=== PATIENT | male | born 1940 | race Caucasian/White ===

== ENCOUNTER → 2016-11-21 | Outpatient (CLI) | payer MEDICARE | LOC: RAD 12:19 | PROVIDERS: ATTEND Family Medicine | DX: I65.03 Occlusion and stenosis of bilateral vertebral arteries (principal) | CPT/HCPCS: 93880 ==

== ENCOUNTER → 2017-01-02 | Outpatient (CLI) | payer MEDICARE ==
[~2017-01-02] MED LIST: ASCO500T20 PO; BACI28.32 EXT; FNST5T PO; MULT1CAP27 PO; OMEPRAZOLE PO; TAMS-8 PO; ZOCOR PO; [UNRECOGNIZED DRUG - REMARK]
--- NOTE | 2017-01-02 10:34 | Diagnostic Imaging Report ---
INDICATION: Dyspnea. COMPARISON: 04/24/2015 FINDINGS: 2 views of the chest are obtained. Heart size is normal. The pulmonary vessels appear unremarkable. There is no pneumothorax or pleural fluid demonstrated. Some scarring at the left lung base appears stable. The lungs are otherwise clear. There are mild degenerative changes in the spine. IMPRESSION: No acute cardiopulmonary abnormality is seen. No interval change from the prior study. Dictated by: Dictated on workstation # [id number]
== END ==
LOC: RAD 09:48
PROVIDERS: ATTEND Family Medicine
DX: R06.00 Dyspnea, unspecified (principal)
CPT/HCPCS: 71020

== ENCOUNTER → 2017-01-17 | Outpatient (CLI) | payer MEDICARE ==
--- NOTE | 2017-01-17 14:14 | Diagnostic Imaging Report ---
PROCEDURE: CT abdomen and pelvis without contrast. TECHNIQUE: Multiple contiguous axial images were obtained through the abdomen and pelvis without the use of intravenous contrast. INDICATION: Hematuria. COMPARISON: None. FINDINGS: Lung bases are clear. Mild scattered arterial calcifications including coronary and aortic. The liver, gallbladder, pancreas, spleen, adrenals, right kidney, right collecting system and appendix are negative on this noncontrast exam. There is an isoattenuated rounded density in the medial upper pole of the left kidney measuring approximately 1.8 cm in diameter. The left collecting system is normal where seen. Streak artifact from a left PATITO obscures the bladder and distal left ureter in the pelvis. Prostate calcifications. No free intraperitoneal air or fluid. No lymphadenopathy. No evidence of bowel obstruction or inflammation. Chronic right L5 pars defect. Mild to moderate spondylotic changes in the visualized spine. IMPRESSION: 1. Possible mass in the medial upper pole of the left kidney measuring approximately 1.8 cm. Although this may represent a normal cortical lobulation, the rounded appearance on all 3 projections is suspicious. Recommend CT urogram or MRI for further evaluation. 2. No other findings to explain hematuria on this noncontrast exam. Dictated by: Dictated on workstation # [id number]
== END ==
LOC: RAD 12:50
PROVIDERS: ATTEND Family Medicine
DX: R31.0 Gross hematuria (principal)
CPT/HCPCS: 74176

== ENCOUNTER → 2017-01-23 | Outpatient (CLI) | payer MEDICARE ==
--- NOTE | 2017-01-23 09:21 | Diagnostic Imaging Report ---
INDICATION: Orbits for foreign body pre-MRI screening. FINDINGS: Single view of the orbits shows no evidence of radiopaque foreign bodies. IMPRESSION: Negative orbits for foreign body. Report was called and faxed to Elaine at office of Dr. Allen @ 9:18 AM/heriberto. Dictated by: Dictated on workstation # [id number]
--- NOTE | 2017-01-23 10:39 | Diagnostic Imaging Report ---
PROCEDURE: MR imaging abdomen without contrast. TECHNIQUE: Multiplanar, multisequence MR imaging of the abdomen was performed without contrast. INDICATION: Followup of the CT scan for questionable mass in the medial upper pole of the left kidney. FINDINGS: Noncontrasted exam shows mild lobulated appearance in the upper medial aspect of the left kidney correlating to the area of concern on CT scan. No discrete mass is identified, however. This likely represents lobulation. Right kidney appears normal. There is no hydronephrosis. There is no periaortic adenopathy. Aorta is not dilated. The renal arteries appear patent bilaterally. Renal veins appear normal. IMPRESSION: No findings are seen on MRI without contrast to indicate renal mass. Dictated by: Dictated on workstation # [id number]
== END ==
LOC: RAD 08:37
PROVIDERS: ATTEND Family Medicine
DX: N28.89 Other specified disorders of kidney and ureter (principal); Z77.018 Contact with and (suspected) exposure to other hazardous metals
CPT/HCPCS: 70140; 74181